=== PATIENT | female | born 1970 | race Caucasian/White ===

== ENCOUNTER 2024-07-15 16:26 | Observation (INO) ==
--- NOTE | 2024-07-15 17:15 | DR.HTN ---
HPI Time Seen Time Seen by Provider: 07/15/24 17:05 Primary Care Physician Primary Care Physician: Maggy Ceron HPI Comment HPI Comment: According to pt she has not been feeling well .Has noticed head pressure .Had bp checked .Was noted to be over 170 systolic. She was seen by her FP and started on lisinopril/hctz 10/12.5 She called them back that bp still high .Advised to take lisinopril/Hctz 2x per day . Pt called back once again and this his time additional hctz was sent . Pt here to have herself checked has no fever or chills .Does smoke cigarettes at least 1/2 pack and drinks 8 beers a day Complaints Chief Complaint Doctors Comments: headache concerned about blood pressure elevated bp Chief Complaint:: Pt c/o fatige, generalized headache and mild nausea with no vomiting for the past week. Pt states that her BP has been elevated for the past week with consistent readings of diastolic BP >100. Denies any shortness of breath or chest pain. Self Treatment fo Chief Complaint: Pt was seen by PCP on Wednesday and instructed to restart her Lisinopril/HCTZ 10-12.5mg po daily. BP remained elevated so she was instructed to take this same dose twice daily. Today she picked up an additional prescription for HCTZ 12.5mg po daily and she took her first dose of that. COVID-19 Coronavirus risk:travel/contact w/high risk person: No Has patient experienced Coronavirus symptoms: No Reviewed Nurses Notes Reviewed: Yes Source History Provided: Patient Mode of Arrival Mode of Arrival: Ambulatory Timing Onset of Chief Complaint: 07/10/24 Context Treatment of HTN Prior to Arrival: Taking meds as prescribed and Rec. change in med regime Associated Signs and Symptoms HTN Associated Signs and Symptoms: Headache and N/V PMH PMH Past Medical History: Yes Past Medical History: Anxiety, COPD, Depression and Hypertension Past Surgical History: Yes Surgical History: Ectopic Past Surgical History Comment: tubal ligation, perforated gastric ulcer Family History History of Family Medical Conditions: Yes Family Medical History: Diabetes Mellitus, Cancer, [place], Coronary Artery Disease and Hypertension Social History Does patient currently use any type of tobacco product: Yes Have you used tobacco products in the last 12 months: Yes Type of Tobacco Use: Cigarettes Does any household member use tobacco: No Alcohol Use: DAILY Do you use any recreational Drugs:: No Lives With: Family Lives Where: Home Travel Risk Coronavirus risk:travel/contact w/high risk person: No Has patient experienced Coronavirus symptoms: No Infectious screening In the last 2 months have you had wt loss of >10#?: NO Have you had fever, night sweats or hemotysis?: No Have you traveled outside the country in the last 6 months?: No Isolation: Standard ROS Review of Systems Constitutional: Malaise and Fatigue Eyes: No Symptoms Reported ENTM: No Symptoms Reported Respiratoy: No Symptoms Reported Cardiovascular: No Symptoms Reported Gastrointestinal/Abdominal: No Symptoms Reported Genitourinary: No Symptoms Reported Neurological: No Symptoms Reported Musculoskeletal: No Symptoms Reported Integumentary: No Symptoms Reported Hematologic/Lymphatic: No Symptoms Reported Endocrine: No Symptoms Reported PE Vital Signs Vitals: Vital Signs Temperature 97.8 F Pulse Rate 92 Respiratory Rate 18 Blood Pressure 142/79 Blood Pressure 142/79 Blood Pressure 131/72 Blood Pressure 159/72 Blood Pressure 174/79 O2 Sat by Pulse Oximetry 97 General Limitations: No Limitations General Appearance: Alert and In No Apparent Distress Head Head Exam: Normal Inspection, Atraumatic and Normocephalic Eyes Eye exam: Normal Appearance, PERRL and EOMI Pupils: Regular, Round: Bilateral ENT ENT Exam: Mucous Membranes Moist Neck Neck Exam: Normal Inspection and Full ROM Chest Chest Inspection: Normal Inspection Respiratory Respiratory Exam: Prolonged Expiratory Phase Respiratory Exam: Bilateral: Clear to Auscultation Cardiovascular Cardiovascular Exam: +S1 and +S2 Abdominal Exam Abdominal Exam: Normal Inspection, Normal Bowel Sounds and Soft Extremities Extremities Exam: Normal Inspection Neurologic Neurological Exam: Alert Skin Skin Exam: Normal Color MDM Differential Diagnosis Differential Diagnosis Comment: fatigue ,elevated bp,tobacco user COURSE Treatment Treatment: labs increase lisinopril/hctz to daily ROR Labs Reviewed 07/15/24 17:07 07/15/24 17:07 Laboratory: WBC 12.0 X10^3/uL (3.6-10.0) H 07/15/24 17:07 RBC 4.32 X10^6/uL (3.5-5.4) 07/15/24 17:07 Hgb 15.3 g/dL (12.0-16.0) 07/15/24 17:07 Hct 42.7 % (36.0-47.0) 07/15/24 17:07 MCV 98.7 fL (80.0-100.0) 07/15/24 17:07 MCH 35.4 pg (27.0-34.0) H 07/15/24 17:07 MCHC 35.9 g/dL (33.0-35.0) H 07/15/24 17:07 RDW 13.4 % (11.6-16.5) 07/15/24 17:07 Plt Count 347 X10^3/uL (150.0-450.0) 07/15/24 17:07 MPV 7.1 fL (7.4-11.0) L 07/15/24 17:07 Neut % (Auto) 71.1 % (42.0-75.0) 07/15/24 17:07 Lymph % (Auto) 20.8 % (21.0-51.0) L 07/15/24 17:07 [place] % (Auto) 5.7 % (0.0-13.0) 07/15/24 17:07 Eos % (Auto) 1.5 % (0.9-2.9) 07/15/24 17:07 Baso % (Auto) 0.9 % (0.2-1.0) 07/15/24 17:07 Neut # (Auto) 8.5 x10^3/uL (2.2-4.8) H 07/15/24 17:07 Lymph # (Auto) 2.5 X10^3/uL (1.3-2.9) 07/15/24 17:07 [place] # (Auto) 0.7 x10^3/uL (0.3-0.8) 07/15/24 17:07 Eos # (Auto) 0.2 x10^3/uL (0.0-0.2) 07/15/24 17:07 Baso # (Auto) 0.1 X10^3/uL (0.0-0.1) 07/15/24 17:07 Absolute Nucleated RBC 0.0 /100WBC 07/15/24 17:07 Sodium 118 mmol/L (136-145) L* 07/15/24 17:07 Corrected Sodium TNP 07/15/24 17:07 Potassium 3.8 mmol/L (3.5-5.1) 07/15/24 17:07 Chloride 81 mmol/L (98-107) L 07/15/24 17:07 Carbon Dioxide 30.8 mmol/L (21-32) 07/15/24 17:07 BUN 9 mg/dL (7-18) 07/15/24 17:07 Creatinine 0.83 mg/dL (0.55-1.02) 07/15/24 17:07 Est GFR (MDRD) Af Amer > 60 (>60) 07/15/24 17:07 Est GFR (MDRD) Non-Af > 60 (>60) 07/15/24 17:07 Glucose 106 mg/dL (65-99) H 07/15/24 17:07 Calcium 9.3 mg/dL (8.5-10.1) 07/15/24 17:07 Opioid Opioid Risk Tool Age (Fercho box if 16-45): No History of Preadolescent Sexual Abuse: No Total: 0 Total Score Risk Category: Low Risk Copyright: Oumar AWAN predicting aberrant behaviors Discharge Plan Diagnosis Discharge Problem: Hypo-osmolality and hyponatremia, HTN (hypertension), Malaise, Tobacco user, Alcohol use Discharge Plan Patient Disposition: 09 ADMITTED INPATIENT Condition: Stable Orders to Discharge Patient Discharge Orders: Transfer (Routine); Ordered 07/15/24 Ordered By: Roe Carlisle ADDITIONAL NOTES Additional Notes Additional Notes: ser sodium 118, calculated ser osm 245 (Hypotonic hyponatremia) hx of tobacco use ,pt drinks lots of water(32 oz x 6) according to her and does not add salt to her diet,8 cans of beer . Spoke with Dr Solano .Agreed have patient admitted
[2024-07-15 17:20] LABS: BASOPHILS # (AUTO) 0.1 X10^3/uL (0.0-0.1); EOSINOPHILS # (AUTO) 0.2 x10^3/uL (0.0-0.2)
[2024-07-15 17:21] LABS: BLOOD UREA NITROGEN 9 mg/dL (7-18); CALCIUM 9.3 mg/dL (8.5-10.1); CARBON DIOXIDE 30.8 mmol/L (21-32); CHLORIDE 81 mmol/L (98-107); CREATININE 0.83 mg/dL (0.55-1.02); GLUCOSE 106 mg/dL (65-99); POTASSIUM 3.8 mmol/L (3.5-5.1); eGFR NON BLACK RACES > 60 (>60)
[2024-07-15 17:28] LABS: BASOPHILS % (AUTO) 0.9 % (0.2-1.0); EOSINOPHILS % (AUTO) 1.5 % (0.9-2.9); HEMATOCRIT 42.7 % (36.0-47.0); HEMOGLOBIN 15.3 g/dL (12.0-16.0); LYMPHOCYTES # (AUTO) 2.5 X10^3/uL (1.3-2.9); LYMPHOCYTES % (AUTO) 20.8 % (21.0-51.0); MEAN CORPUSCULAR HEMOGLOBIN 35.4 pg (27.0-34.0); MEAN CORPUSCULAR HGB CONC 35.9 g/dL (33.0-35.0); MEAN CORPUSCULAR VOLUME 98.7 fL (80.0-100.0); MEAN PLATELET VOLUME 7.1 fL (7.4-11.0); MONOCYTES # (AUTO) 0.7 x10^3/uL (0.3-0.8); MONOCYTES % (AUTO) 5.7 % (0.0-13.0); NEUTROPHILS # (AUTO) 8.5 x10^3/uL (2.2-4.8); NEUTROPHILS % (AUTO) 71.1 % (42.0-75.0); PLATELET COUNT 347 X10^3/uL (150.0-450.0); RED BLOOD COUNT 4.32 X10^6/uL (3.5-5.4); RED CELL DISTRIBUTION WIDTH 13.4 % (11.6-16.5)
[2024-07-15 17:30] LABS: SODIUM 118 mmol/L (136-145)
[2024-07-15] MEDS ORDERED: MAALOX or MYLANTA PO PRN (18:19)
[2024-07-15] MEDS ORDERED: MILK OF MAGNESIA PO PRN (18:19)
[2024-07-15] MEDS ORDERED: PHENOBARBITAL SODIUM INJ 65 MG VIAL IM PRN (18:19)
[2024-07-15] MEDS ORDERED: LIBRIUM PO PRN (18:19)
[2024-07-15] MEDS ORDERED: KAOPECTATE (NEW FORMULA) PO PRN (18:19)
[2024-07-15] MEDS: NS 1,000 ML IV 1,000 ML IV ONE (18:24)
[2024-07-15 18:32] LABS: ALANINE AMINOTRANSFERASE 25 Units/L (12-78); ALKALINE PHOSPHATASE 79 Units/L (46-116); ASPARTATE AMINO TRANSFERASE 27 Units/L (15-37); TOTAL PROTEIN 7.4 g/dL (6.4-8.2); TSH (3RD GENERATION) 1.063 uIU/mL (0.358-3.74)
[2024-07-15] MEDS: NICOTINE PATCH TD SCH (19:00)
--- NOTE | 2024-07-15 19:16 | RAD ---
EXAM:CHEST, 1 VIEWHISTORY:high BP, weakness, headache;COMPARISON:None available.FINDINGS:The trachea is midline. The cardiac silhouette is unremarkable. COPD the lungs are clear without focal infiltrate or effusion. The bony thorax is unremarkable.IMPRESSION:COPDNo acute cardiopulmonary disease.THIS IS AN ELECTRONICALLY VERIFIED FINAL REPORT07/15/2024 7:13 PM - Electronically signed by Marco Antonio Wade MD
[2024-07-15 20:05] VITALS: BMI 24.3
[2024-07-15] MEDS: PHENOBARBITAL TAB 30 MG (32.4MG) PO SCH (20:23)
[2024-07-15] MEDS: AMBIEN PO SCH (20:23)
[2024-07-16 04:51] LABS: BASOPHILS # (AUTO) 0.1 X10^3/uL (0.0-0.1); BASOPHILS % (AUTO) 0.9 % (0.2-1.0); EOSINOPHILS # (AUTO) 0.2 x10^3/uL (0.0-0.2); EOSINOPHILS % (AUTO) 2.1 % (0.9-2.9); HEMATOCRIT 40.3 % (36.0-47.0); HEMOGLOBIN 14.3 g/dL (12.0-16.0); LYMPHOCYTES # (AUTO) 2.3 X10^3/uL (1.3-2.9); LYMPHOCYTES % (AUTO) 28.3 % (21.0-51.0); MEAN CORPUSCULAR HGB CONC 35.4 g/dL (33.0-35.0); MEAN CORPUSCULAR VOLUME 98.9 fL (80.0-100.0); MEAN PLATELET VOLUME 7.4 fL (7.4-11.0); MONOCYTES # (AUTO) 0.6 x10^3/uL (0.3-0.8); MONOCYTES % (AUTO) 7.9 % (0.0-13.0); NEUTROPHILS # (AUTO) 4.8 x10^3/uL (2.2-4.8); NEUTROPHILS % (AUTO) 60.8 % (42.0-75.0); PLATELET COUNT 320 X10^3/uL (150.0-450.0); RED BLOOD COUNT 4.08 X10^6/uL (3.5-5.4); RED CELL DISTRIBUTION WIDTH 13.3 % (11.6-16.5); WHITE BLOOD COUNT 7.9 X10^3/uL (3.6-10.0)
[2024-07-16 04:58] LABS: BLOOD UREA NITROGEN 6 mg/dL (7-18); CALCIUM 9.1 mg/dL (8.5-10.1); CARBON DIOXIDE 28.6 mmol/L (21-32); CHLORIDE 88 mmol/L (98-107); COR NA(FOR HYPERGLY) 126 mmol/L (136-145); CREATININE 0.81 mg/dL (0.55-1.02); GLUCOSE 121 mg/dL (65-99); MAGNESIUM 1.8 mg/dL (2.0-2.9); POTASSIUM 3.8 mmol/L (3.5-5.1); eGFR NON BLACK RACES > 60 (>60)
[2024-07-16 05:13] LABS: SODIUM 125 mmol/L (136-145)
[2024-07-16] MEDS ORDERED: CONSULT PHARMACY - POTASSIUM & MAGNESIUM XX SCH (07:00)
[2024-07-16] MEDS: ZESTORETIC 10/ 12.5MG PO SCH (08:19)
[2024-07-16] MEDS: K-DUR TAB 20 MEQ PO SCH (08:19)
[2024-07-16] MEDS: MAG-OX TAB PO SCH (08:19)
[2024-07-16] MEDS: THIAMINE HCL INJ IM SCH (08:20)
--- NOTE | 2024-07-16 10:26 | DR.H&P ---
H&P History & Physical for Day of: H&P Date: 07/16/24 Chief Complaint Chief Complaint: weakness, elevated BP History of Present Illness History of Present Illness: Ms. Banegas is a 53-year-old female with past medical history of hypertension, anxiety, depression, COPD and ETOH use presented with generalized weakness, fatigue and elevated blood pressure. She reports her blood pressure has been elevated for the past week and she did see her PCP. She was started on lisinoprilhydrochlorothiazide and the dose was increased as her blood pressure continued to stay elevated in the 150s systolic. She also cut back on salt intake and started drinking more water. She states she has been feeling tired and fatigued for the past week. ER workup showed sodium 118, low mag and low chloride. Chest x-ray was negative. She was started on normal saline. She is feeling better today. Her sodium level is 125. Labs/imaging reviewed: -WBC 7.9 hemoglobin 14 sodium 125 chloride 88 creatinine 0.81 potassium 3.8 magnesium 1.8 -Chest x-ray no acute changes Plan: Will continue gentle hydration with normal saline at 75 cc/hour. Monitor NA levels. Resume home medications. Replace electrolytes as per protocol. Encourage p.o. intake. Ambulate as tolerated. Continue nicotine patch and Detox protocol. Monitor a.m. labs and imaging. Past Medical History Past Medical History: Anxiety, COPD, Depression and Hypertension Past Surgical History Surgical History: Ectopic and MANAGER ENGAGEMENT Surgery Family History Family Medical History: Diabetes Mellitus and Hypertension Social History Does patient currently use any type of tobacco product: Yes Have you used tobacco products in the last 12 months: Yes Type of Tobacco Use: Cigarettes Does any household member use tobacco: No Alcohol Use: DAILY Drug Use: None Medications Home Medications: Home Medications Medication Instructions Recorded Confirmed Type dexbrompheniramine 2 1 tab PO QID PRN sinusitis 07/15/24 07/15/24 History mg-phenylephrine 7.5 mg tablet (Alahist PE) lisinopril 10 1 tab PO QDAY 07/15/24 07/15/24 History mg-hydrochlorothiazide 12.5 mg tablet montelukast 10 mg tablet 10 mg PO QDAY 07/15/24 07/15/24 History Allergies Allergies Allergy/AdvReac Type Severity Reaction Status Date / Time codeine Allergy Verified 07/15/24 16:49 Labs 07/16/24 04:16 07/16/24 04:16 Labs: Laboratory WBC 7.9 X10^3/uL (3.6-10.0) 07/16/24 04:16 RBC 4.08 X10^6/uL (3.5-5.4) 07/16/24 04:16 Hgb 14.3 g/dL (12.0-16.0) 07/16/24 04:16 Hct 40.3 % (36.0-47.0) 07/16/24 04:16 MCV 98.9 fL (80.0-100.0) 07/16/24 04:16 MCH 35.0 pg (27.0-34.0) H 07/16/24 04:16 MCHC 35.4 g/dL (33.0-35.0) H 07/16/24 04:16 RDW 13.3 % (11.6-16.5) 07/16/24 04:16 Plt Count 320 X10^3/uL (150.0-450.0) 07/16/24 04:16 MPV 7.4 fL (7.4-11.0) 07/16/24 04:16 Neut % (Auto) 60.8 % (42.0-75.0) 07/16/24 04:16 Lymph % (Auto) 28.3 % (21.0-51.0) 07/16/24 04:16 [place] % (Auto) 7.9 % (0.0-13.0) 07/16/24 04:16 Eos % (Auto) 2.1 % (0.9-2.9) 07/16/24 04:16 Baso % (Auto) 0.9 % (0.2-1.0) 07/16/24 04:16 Neut # (Auto) 4.8 x10^3/uL (2.2-4.8) 07/16/24 04:16 Lymph # (Auto) 2.3 X10^3/uL (1.3-2.9) 07/16/24 04:16 [place] # (Auto) 0.6 x10^3/uL (0.3-0.8) 07/16/24 04:16 Eos # (Auto) 0.2 x10^3/uL (0.0-0.2) 07/16/24 04:16 Baso # (Auto) 0.1 X10^3/uL (0.0-0.1) 07/16/24 04:16 Absolute Nucleated RBC 0.0 /100WBC 07/16/24 04:16 Sodium 125 mmol/L (136-145) L* 07/16/24 04:16 Corrected Sodium 126 mmol/L (136-145) L 07/16/24 04:16 Potassium 3.8 mmol/L (3.5-5.1) 07/16/24 04:16 Chloride 88 mmol/L (98-107) L 07/16/24 04:16 Carbon Dioxide 28.6 mmol/L (21-32) 07/16/24 04:16 BUN 6 mg/dL (7-18) L 07/16/24 04:16 Creatinine 0.81 mg/dL (0.55-1.02) 07/16/24 04:16 Est GFR (MDRD) Af Amer > 60 (>60) 07/16/24 04:16 Est GFR (MDRD) Non-Af > 60 (>60) 07/16/24 04:16 Glucose 121 mg/dL (65-99) H 07/16/24 04:16 Calcium 9.1 mg/dL (8.5-10.1) 07/16/24 04:16 Corrected Calcium TNP 07/15/24 17:07 Magnesium 1.8 mg/dL (2.0-2.9) L 07/16/24 04:16 Total Bilirubin 0.30 mg/dL (0.2-1.0) 07/15/24 17:07 AST 27 Units/L (15-37) 07/15/24 17:07 ALT 25 Units/L (12-78) 07/15/24 17:07 Alkaline Phosphatase 79 Units/L (46-116) 07/15/24 17:07 Total Protein 7.4 g/dL (6.4-8.2) 07/15/24 17:07 Albumin 4.0 g/dL (3.4-5.0) 07/15/24 17:07 Globulin 3.4 g/dL (2.5-4.5) 07/15/24 17:07 Albumin/Globulin Ratio 1.2 Ratio (1.1-2.1) 07/15/24 17:07 TSH 3rd Generation 1.063 uIU/mL (0.358-3.74) 07/15/24 17:07 Review of Systems Constitutional: Weakness and Malaise Eyes: No Symptoms Reported ENT: No Symptoms Reported Respiratory: No Symptoms Reported Cardiovascular: No Symptoms Reported Gastrointestinal: No Symptoms Reported Genitourinary: No Symptoms Reported Musculoskeletal: No Symptoms Reported Skin: No Symptoms Reported Neurological: No Symptoms Reported Physical Exam Vital Signs: Vital Signs Temperature 98.1 F Temperature 98.0 F Pulse Rate [Left Radial] 75 Pulse Rate [Left Radial] 80 Respiratory Rate 20 Respiratory Rate 20 Blood Pressure [Left Arm] 146/82 Blood Pressure [Left Arm] 108/62 O2 Sat by Pulse Oximetry 97 O2 Sat by Pulse Oximetry 97 Oriented: Normal Eyes: Normal Throat: Normal Respiratory: Clear Throughout Cardiovascular: Normal Auscultation: Bowel Sounds: Normal Palpation: Normal Tenderness: Normal Skin: Normal Musculoskeletal: Normal Psychiatric: Normal Mood Description: Calm Speech Pattern: Clear and Appropriate Assessment/Plan (1) Hyponatremia: Status: Acute (2) Hypomagnesemia: Status: Acute (3) Dehydration: Status: Acute (4) Generalized weakness: Status: Acute (5) Tobacco user: Status: Chronic (6) Alcohol use: Status: Chronic Review H&P Reviewed: Yes Patient was examined?: Yes
[2024-07-16] MEDS: NS 1,000 ML IV 1,000 ML IV SCH (12:34)
[2024-07-16] MEDS: NS 1,000 ML IV 1,000 ML ONE (19:28)
[2024-07-17 04:50] LABS: BASOPHILS # (AUTO) 0.1 X10^3/uL (0.0-0.1); BASOPHILS % (AUTO) 1.2 % (0.2-1.0); EOSINOPHILS # (AUTO) 0.2 x10^3/uL (0.0-0.2); EOSINOPHILS % (AUTO) 3.3 % (0.9-2.9); HEMATOCRIT 39.6 % (36.0-47.0); HEMOGLOBIN 14.1 g/dL (12.0-16.0); LYMPHOCYTES # (AUTO) 2.4 X10^3/uL (1.3-2.9); LYMPHOCYTES % (AUTO) 37.2 % (21.0-51.0); MEAN CORPUSCULAR HEMOGLOBIN 35.3 pg (27.0-34.0); MEAN CORPUSCULAR HGB CONC 35.5 g/dL (33.0-35.0); MEAN CORPUSCULAR VOLUME 99.3 fL (80.0-100.0); MEAN PLATELET VOLUME 7.3 fL (7.4-11.0); MONOCYTES # (AUTO) 0.7 x10^3/uL (0.3-0.8); MONOCYTES % (AUTO) 11.1 % (0.0-13.0); NEUTROPHILS # (AUTO) 3.1 x10^3/uL (2.2-4.8); NEUTROPHILS % (AUTO) 47.2 % (42.0-75.0); PLATELET COUNT 317 X10^3/uL (150.0-450.0); RED BLOOD COUNT 3.99 X10^6/uL (3.5-5.4); RED CELL DISTRIBUTION WIDTH 13.5 % (11.6-16.5); WHITE BLOOD COUNT 6.5 X10^3/uL (3.6-10.0)
[2024-07-17 04:58] LABS: ALANINE AMINOTRANSFERASE 22 Units/L (12-78); ALBUMIN 3.4 g/dL (3.4-5.0); ALKALINE PHOSPHATASE 59 Units/L (46-116); ASPARTATE AMINO TRANSFERASE 20 Units/L (15-37); BLOOD UREA NITROGEN 7 mg/dL (7-18); CALCIUM 9.1 mg/dL (8.5-10.1); CARBON DIOXIDE 28.6 mmol/L (21-32); CHLORIDE 94 mmol/L (98-107); CREATININE 0.82 mg/dL (0.55-1.02); GLUCOSE 109 mg/dL (65-99); MAGNESIUM 1.9 mg/dL (2.0-2.9); POTASSIUM 4.3 mmol/L (3.5-5.1); SODIUM 130 mmol/L (136-145); TOTAL PROTEIN 6.5 g/dL (6.4-8.2); eGFR NON BLACK RACES > 60 (>60)
[2024-07-17 05:05] VITALS: O2SAT 94
[2024-07-17] MEDS ORDERED: CONSULT PHARMACY - POTASSIUM & MAGNESIUM XX SCH (06:00)
[2024-07-17 08:14] VITALS: BP 121/68; PULSE 81; RESP 18; TEMP 99.1
[2024-07-17] MEDS: MAG-OX TAB PO SCH (08:34)
--- NOTE | 2024-07-18 10:44 | W.DIS.FURT ---
Summary of Discharge Discharge Summary of Date Date of Exam: 07/17/24 Admission Date Date of Admission: 07/15/24 Admission Diagnosis Patient Problems Hypo-osmolality and hyponatremia (Acute) E87.1 HTN (hypertension) (Acute) I10 Malaise (Acute) R53.81 Tobacco user (Chronic) Z72.0 Alcohol use (Chronic) F10.90 Hospital Course: Ms. Banegas is a 53-year-old female with past medical history of hypertension, anxiety, depression, COPD and ETOH use presented with generalized weakness, fatigue and elevated blood pressure. She reports her blood pressure has been elevated for the past week and she did see her PCP. She was started on lisinoprilhydrochlorothiazide and the dose was increased as her blood pressure continued to stay elevated in the 150s systolic. She also cut back on salt intake and started drinking more water. She states she has been feeling tired and fatigued for the past week. ER workup showed sodium 118, low mag and low chloride. Chest x-ray was negative. She was started on normal saline. She is feeling better today. Sodium level did improve to 125 the next day. Her labs are monitored daily and electrolytes replace as needed. She remained on normal saline for another day and her sodium improved to 130. Her blood pressure was better controlled. She was feeling better. She was tolerating p.o. intake. She was stable to be discharged home. She will follow-up with PCP as scheduled. Vital Signs: Vital Signs (72 hours) 07/15/24 16:40 07/15/24 16:45 07/15/24 17:00 Temperature 97.8 F Pulse Rate 92 H Pulse Rate [Left Radial] Respiratory Rate 18 Blood Pressure 174/79 159/72 131/72 Blood Pressure [Left Arm] O2 Sat by Pulse Oximetry 97 Oxygen Delivery Method Room Air 07/15/24 17:30 07/15/24 17:30 07/15/24 18:40 Temperature Pulse Rate Pulse Rate [Left Radial] Respiratory Rate Blood Pressure 142/79 142/79 Blood Pressure [Left Arm] 149/74 O2 Sat by Pulse Oximetry Oxygen Delivery Method 07/15/24 19:38 07/15/24 18:14 07/15/24 19:00 Temperature 97.9 F Pulse Rate Pulse Rate [Left Radial] 76 Respiratory Rate 18 Blood Pressure Blood Pressure [Left Arm] 160/90 O2 Sat by Pulse Oximetry 98 Oxygen Delivery Method Room Air Room Air 07/15/24 23:40 07/16/24 03:56 07/16/24 07:00 Temperature 98.7 F 98.0 F Pulse Rate Pulse Rate [Left Radial] 92 H 80 Respiratory Rate 20 20 Blood Pressure Blood Pressure [Left Arm] 139/73 108/62 O2 Sat by Pulse Oximetry 95 97 Oxygen Delivery Method Room Air 07/16/24 08:00 07/16/24 11:36 07/16/24 16:00 Temperature 98.1 F 98.1 F 97.6 F Pulse Rate Pulse Rate [Left Radial] 75 76 89 Respiratory Rate 20 20 18 Blood Pressure Blood Pressure [Left Arm] 146/82 123/75 151/65 O2 Sat by Pulse Oximetry 97 97 98 Oxygen Delivery Method 07/16/24 19:00 07/16/24 20:00 07/16/24 23:38 Temperature 98.3 F 98.2 F Pulse Rate Pulse Rate [Left Radial] 75 71 Respiratory Rate 19 20 Blood Pressure Blood Pressure [Left Arm] 146/83 128/70 O2 Sat by Pulse Oximetry 98 97 Oxygen Delivery Method Room Air 07/17/24 04:00 07/17/24 08:00 Temperature 98.0 F 99.1 F Pulse Rate Pulse Rate [Left Radial] 70 81 Respiratory Rate 20 18 Blood Pressure Blood Pressure [Left Arm] 125/69 121/68 O2 Sat by Pulse Oximetry 94 L 94 L Oxygen Delivery Method Labs: Laboratory Last Values WBC 6.5 X10^3/uL (3.6-10.0) 07/17/24 04:15 RBC 3.99 X10^6/uL (3.5-5.4) 07/17/24 04:15 Hgb 14.1 g/dL (12.0-16.0) 07/17/24 04:15 Hct 39.6 % (36.0-47.0) 07/17/24 04:15 MCV 99.3 fL (80.0-100.0) 07/17/24 04:15 MCH 35.3 pg (27.0-34.0) H 07/17/24 04:15 MCHC 35.5 g/dL (33.0-35.0) H 07/17/24 04:15 RDW 13.5 % (11.6-16.5) 07/17/24 04:15 Plt Count 317 X10^3/uL (150.0-450.0) 07/17/24 04:15 MPV 7.3 fL (7.4-11.0) L 07/17/24 04:15 Neut % (Auto) 47.2 % (42.0-75.0) 07/17/24 04:15 Lymph % (Auto) 37.2 % (21.0-51.0) 07/17/24 04:15 [place] % (Auto) 11.1 % (0.0-13.0) 07/17/24 04:15 Eos % (Auto) 3.3 % (0.9-2.9) H 07/17/24 04:15 Baso % (Auto) 1.2 % (0.2-1.0) H 07/17/24 04:15 Neut # (Auto) 3.1 x10^3/uL (2.2-4.8) 07/17/24 04:15 Lymph # (Auto) 2.4 X10^3/uL (1.3-2.9) 07/17/24 04:15 [place] # (Auto) 0.7 x10^3/uL (0.3-0.8) 07/17/24 04:15 Eos # (Auto) 0.2 x10^3/uL (0.0-0.2) 07/17/24 04:15 Baso # (Auto) 0.1 X10^3/uL (0.0-0.1) 07/17/24 04:15 Absolute Nucleated RBC 0.1 /100WBC 07/17/24 04:15 Sodium 130 mmol/L (136-145) L 07/17/24 04:15 Corrected Sodium TNP 07/17/24 04:15 Potassium 4.3 mmol/L (3.5-5.1) 07/17/24 04:15 Chloride 94 mmol/L (98-107) L 07/17/24 04:15 Carbon Dioxide 28.6 mmol/L (21-32) 07/17/24 04:15 BUN 7 mg/dL (7-18) 07/17/24 04:15 Creatinine 0.82 mg/dL (0.55-1.02) 07/17/24 04:15 Est GFR (MDRD) Af Amer > 60 (>60) 07/17/24 04:15 Est GFR (MDRD) Non-Af > 60 (>60) 07/17/24 04:15 Glucose 109 mg/dL (65-99) H 07/17/24 04:15 Calcium 9.1 mg/dL (8.5-10.1) 07/17/24 04:15 Corrected Calcium TNP 07/17/24 04:15 Magnesium 1.9 mg/dL (2.0-2.9) L 07/17/24 04:15 Total Bilirubin 0.30 mg/dL (0.2-1.0) 07/17/24 04:15 AST 20 Units/L (15-37) 07/17/24 04:15 ALT 22 Units/L (12-78) 07/17/24 04:15 Alkaline Phosphatase 59 Units/L (46-116) 07/17/24 04:15 Total Protein 6.5 g/dL (6.4-8.2) 07/17/24 04:15 Albumin 3.4 g/dL (3.4-5.0) 07/17/24 04:15 Globulin 3.1 g/dL (2.5-4.5) 07/17/24 04:15 Albumin/Globulin Ratio 1.1 Ratio (1.1-2.1) 07/17/24 04:15 TSH 3rd Generation 1.063 uIU/mL (0.358-3.74) 07/15/24 17:07 Reason For Visit: HYPOOSMOLAR HYPONATREMIA, HTN, Discharge Diagnosis All Active Problems Generalized weakness (Acute) Dehydration (Acute) Hypomagnesemia (Acute) Hyponatremia (Acute) Acute left ankle pain (Acute) Foot pain, left (Acute) Contusion of arm, right (Acute) Hypo-osmolality and hyponatremia (Acute) HTN (hypertension) (Acute) Malaise (Acute) Tobacco user (Chronic) Alcohol use (Chronic) Plan of Treatment: Continue with present treatment and follow up plan. Pt is to keep follow up appointment as instructed and take medications as ordered. Discharge Medications Discharge Medications: codeine Allergy (Verified 07/15/24 16:49) CONTINUE taking the following medications dexbrompheniramine 2 mg-phenylephrine 7.5 mg tablet (Alahist PE) 1 tab PO QID PRN sinusitis 07/15/24 [History] lisinopril 10 mg-hydrochlorothiazide 12.5 mg tablet 1 tab PO QDAY 07/15/24 [History] montelukast 10 mg tablet 10 mg PO QDAY 07/15/24 [History] Discharge Disposition Discharge Disposition: home Discharge Condition: stable Discharge Plan Discharge Plan Hospital Course: Ms. Banegas is a 53-year-old female with past medical history of hypertension, anxiety, depression, COPD and ETOH use presented with generalized weakness, fatigue and elevated blood pressure. She reports her blood pressure has been elevated for the past week and she did see her PCP. She was started on lisinoprilhydrochlorothiazide and the dose was increased as her blood pressure continued to stay elevated in the 150s systolic. She also cut back on salt intake and started drinking more water. She states she has been feeling tired and fatigued for the past week. ER workup showed sodium 118, low mag and low chloride. Chest x-ray was negative. She was started on normal saline. She is feeling better today. Sodium level did improve to 125 the next day. Her labs are monitored daily and electrolytes replace as needed. She remained on normal saline for another day and her sodium improved to 130. Her blood pressure was better controlled. She was feeling better. She was tolerating p.o. intake. She was stable to be discharged home. She will follow-up with PCP as scheduled. Patient Disposition: 01 HOME, SELF-CARE Condition: Stable Health Concerns: Post Hospitalization: new medications and changes needed to prevent readmission or further decline. Pt educated and given instructions on all concerns. Care Plan Goals: Problem: Pain/Alteration in Comfort Goal: Improve/ Resolve Pain; Achieve Pain Tolerance Instructions: Take pain medications as prescribed. Contact your primary care provider if your pain is unrelieved or worsens. Follow up with primary care provider as directed. Plan of Treatment: Continue with present treatment and follow up plan. Pt is to keep follow up appointment as instructed and take medications as ordered. Prescription drug monitoring program results: PDMP reviewed and no concerns identified Prescriptions: Continued montelukast 10 mg tablet 10 mg PO QDAY lisinopril-hydrochlorothiazide 10-12.5 mg tablet 1 tab PO QDAY Alahist PE 2-7.5 mg tablet 1 tab PO QID PRN (Reason: sinusitis) Orders to Discharge Patient Discharge Orders: Discharge (Routine); Ordered 07/17/24 Ordered By: Nafisa Solano Follow ups/Referrals Follow ups/Referrals: FRIDA RODRIGUEZ [Primary Care Provider] - 07/24/24 9:00 am Instructions Instructions: Hyponatremia, Fatigue, Weakness: What to Know, [id number] Stand Alone Forms: Excuse From Work or School, Find Help Web Site, Post Hospital Follow Up Care
[2024-07-18] MEDS ORDERED: PHENOBARBITAL TAB 15 MG (16.2MG) PO SCH (21:00)
== END 2024-07-17 10:00 | disposition home or self-care (01) ==
LOC: MED/SURG 16:26 → ER 16:26 → MED/SURG 18:41
PROVIDERS: ADMIT Internal Medicine; ATTEND Internal Medicine
DX: E87.1 Hypo-osmolality and hyponatremia; Z72.0 Tobacco use; F41.8 Other specified anxiety disorders; J44.9 Chronic obstructive pulmonary disease, unspecified; F32.89 Other specified depressive episodes; R51.9 Headache, unspecified; E83.42 Hypomagnesemia; E86.0 Dehydration; I10 Essential (primary) hypertension; R53.81 Other malaise; F10.90 Alcohol use, unspecified, uncomplicated